=== PATIENT | female | born 1985 | race Two or more races ===

== ENCOUNTER 2017-08-26 01:43 | Emergency (ER) | END 2017-08-26 04:59 | disposition left against medical advice (07) ==

== ENCOUNTER 2018-02-26 11:05 | Outpatient (CLI) | END 2018-02-26 12:52 | disposition home or self-care (01) ==

== ENCOUNTER 2018-05-12 12:38 | Outpatient (CLI) | END 2018-05-12 17:27 | disposition home or self-care (01) ==

== ENCOUNTER 2018-05-25 22:54 | Inpatient (IN) | END 2018-05-28 11:15 | disposition home or self-care (01) | DRG 807 ==

== ENCOUNTER 2018-09-10 22:53 | Emergency (ER) | payer MEDICAID ==
[~2018-09-10] VITALS: Ht 167.6 cm; Wt 55.2 kg
[~2018-09-10 22:53] MED LIST: FERR134T PO; PREN-93 PO
[2018-09-10 22:57] VITALS: Ht 167.6 cm; Wt 55.2 kg
[2018-09-11] MEDS ORDERED: BEN50 PO (01:56)
[2018-09-11] MEDS ORDERED: FAMO20TA18 PO (01:56)
[2018-09-11] MEDS ORDERED: MINE50OI TP (01:59)
[2018-09-11 02:24] VITALS: BP 118/84; PULSE 80; RESP 18
--- NOTE | 2018-09-11 07:06 | ERD ---
ER Documentation Chief Complaint Chief Complaint ABD PAIN AND SHAKEY; STARTED TODAY HPI 33-year-old female presents for itchiness, abdominal pain, shakiness, nausea times 1 day. She states that this all happened after she dyed her hair color. She does have scalp rash and ear swelling. She states that the abdominal pain and shakiness resolved. No other complaints. ROS All systems reviewed and are negative except as per history of present illness. Medications Home Meds Active Scripts Mineral Oil/Pet Hy-Phl (Aquaphor Healing Ointment) 50 Gm Oint..gm., 1 APPLIC TP BID for scalp itching, #1 TUB Prov:SHUKRI DE LA CRUZ DO 09/11/18 Famotidine* (Famotidine*) 20 Mg Tablet, 20 MG PO DAILY PRN for prn, #30 TAB Prov:SHUKRI DE LA CRUZ DO 09/11/18 Diphenhydramine Hcl* (Benadryl*) 50 Mg Cap, 50 MG PO Q6 PRN for ITCHING, #30 CAP Prov:SHUKRI DE LA CRUZ 09/11/18 Reported Medications Ferrous Sulfate (Iron) 134 Mg Tablet, 134 MG PO DAILY, TAB 05/12/18 Vit No.124/Iron/FA ( Vitamin Tablet) 1 Each Tablet, 1 EACH PO DAILY, TAB 05/12/18 Allergies Allergies: Coded Allergies: No Known Allergy (Unverified , 05/25/18) PMhx/Soc History of Surgery: Yes (Appendix) Anesthesia Reaction: No Hx Neurological Disorder: No Hx Respiratory Disorders: No Hx Cardiac Disorders: No Hx Psychiatric Problems: No Hx Miscellaneous Medical Probl: No Hx Alcohol Use: No Hx Substance Use: No Hx Tobacco Use: No Smoking Status: Never smoker Physical Exam Vitals ital Signs Date Temp Pulse Resp B/P (MAP) Pulse Ox O2 O2 Flow FiO2 Time Delivery Rate 09/11/18 98.4 80 18 118/84 98 Room Air 02:24 (95) 09/10/18 99.1 19 18 126/86 99 22:57 (99) Physical Exam Const: No acute distress Head: Atraumatic, there is diffuse scalp rash noted Eyes: Normal Conjunctiva ENT: erythematous rash noted over the External Ears, Nose and Mouth examination normal. Neck: Full range of motion. No meningismus. Resp: Clear to auscultation bilaterally, normal respiratory effort, patient speaking in full sentences. Cardio: Regular rate and rhythm, no murmurs Abd: Soft, non tender, non distended. Normal bowel sounds Skin: No petechiae or rashes Back: No midline or flank tenderness Ext: No cyanosis, or edema Neur: Awake and alert Psych: Normal Mood and Affect Procedures/MDM Medical Decision Making: Differential diagnosis includes but not limited to allergic reaction, contact dermatitis, cellulitis Patient appeared well on physical exam. Examination consistent with an allergic reaction. Patient given prescription for supportive medications. Patient advised to follow up with PCP in 1-2 days. Patient advised to return to ED for new or worsening symptoms. Patient stable on discharge from the ED. Disclaimer: Inadvertent spelling and grammatical errors are likely due to EHR/dictation software use and do not reflect on the overall quality of patient care. Also, please note that the electronic time recorded on this note does not necessarily reflect the actual time of the patient encounter. Departure Diagnosis: Primary Impression: Allergic reaction Condition: Fair Patient Instructions: Allergic Reaction, Other (General) Referrals: [facility] YOU HAVE RECEIVED A MEDICAL SCREENING EXAM AND THE RESULTS INDICATE THAT YOU DO NOT HAVE A CONDITION THAT REQUIRES URGENT TREATMENT IN THE EMERGENCY DEPARTMENT. FURTHER EVALUATION AND TREATMENT OF YOUR CONDITION CAN WAIT UNTIL YOU ARE SEEN IN YOUR DOCTORS OFFICE WITHIN THE NEXT 1-2 DAYS. IT IS YOUR RESPONSIBILITY TO MAKE AN APPOINTMENT FOR FOLOW-UP CARE. IF YOU HAVE A PRIMARY DOCTOR --you should call your primary doctor and schedule an appointment IF YOU DO NOT HAVE A PRIMARY DOCTOR YOU CAN CALL OUR PHYSICIAN REFERRAL HOTLINE AT IF YOU CAN NOT AFFORD TO SEE A PHYSICIAN YOU CAN CHOSE FROM THE FOLLOWING [facility] CL[facility] [address] [facility] [address] [facility] [address] [facility] [address] [facility] [address] [facility] [facility]. [address] Additional Instructions: ReCall your primary care doctor TOMORROW for an appointment during the next 1-2 days.See the doctor sooner or return here if your condition worsens before your appointment time. SHUKRI DE LA RCUZ DO Sep 11, 2018 07:06
== END 2018-09-11 02:27 | disposition home or self-care (01) ==
LOC: FTE 22:53
DX: R10.9 Unspecified abdominal pain (principal)
CPT/HCPCS: 99282